=== PATIENT | female | born 1995 | race African-American/Black ===

== ENCOUNTER 2016-10-25 17:52 | Emergency (ER) | payer MEDICAID, OTHER ==
[~2016-10-25] VITALS: Ht 165.1 cm; Wt 156.0 kg
[~2016-10-25 17:52] MED LIST: PREN-129 OR
[2016-10-25] MEDS ORDERED: cefTRIAXone 1GM/50ML D5W 50 ML IV ONE (23:15)
[2016-10-25 23:32] LABS: Basophils # (auto) 0.1 uL; Basophils % (auto) 1.6 % (0.0-2.0); DEFINITIVE VIEW TRANSMISSION; Eosinophils # (auto) 0.2 uL; Eosinophils % (auto) 1.9 % (0.0-7.0); Hematocrit 31.5 % (36.0-46.0); Hemoglobin 10.1 g/dL (12.2-16.2); Lymphocytes # (auto) 1.7 uL; Lymphocytes % (auto) 18.1 % (10.0-50.0); Mean Corpuscular Hemoglobin 24.4 pg (28.0-32.0); Mean Corpuscular Hgb Conc. 32.2 g/dL (32.0-36.0); Mean Corpuscular Volume 75.8 fL (80.0-100.0); Mean Platelet Volume 9.1 fL (7.4-10.4); Monocytes # (auto) 0.7 uL; Neutrophils # (auto) 6.5 uL; Neutrophils % (auto) 70.4 % (37.0-80.0); Platelet Count (auto) 408 10^3/uL (140-450); Red Cell Distribution Width 17.2 % (11.6-16.0); White Blood Cell 9.3 10^3/uL (4.4-10.8)
[2016-10-25 23:49] LABS: Albumin 2.8 g/dL (3.4-5.0); BUN/Creatinine Ratio 10.4; Calcium 8.4 mg/dL (8.5-10.1); Potassium 3.4 mmol/L (3.5-5.1)
[2016-10-25 23:52] LABS: Bilirubin, Total 0.6 mg/dL (0.2-1.0); Total Protein 7.1 g/dL (6.4-8.2)
[2016-10-26] MEDS ORDERED: MORPHINE SULFATE 4 MG/ML SYRG IM ONE (03:15)
[2016-10-26 04:23] VITALS: BP 157/91
== END 2016-10-26 04:25 | disposition home or self-care (01) ==
LOC: ER 18:04
DX: O86.0 Infection of obstetric surgical wound (principal); L03.311 Cellulitis of abdominal wall; O24.93 Unspecified diabetes mellitus in the puerperium; O16.5 Unspecified maternal hypertension, complicating the puerperium; O90.89 Other complications of the puerperium, not elsewhere classified; J45.909 Unspecified asthma, uncomplicated; Z88.6 Allergy status to analgesic agent; Z88.8 Allergy status to other drugs, medicaments and biological substances; Z88.1 Allergy status to other antibiotic agents; Z90.49 Acquired absence of other specified parts of digestive tract
CPT/HCPCS: 36415; 74176; 80053; 83605; 85025; 87040; 87205; 96365; 99285; J0696

== ENCOUNTER 2017-09-21 01:55 | Emergency (ER) | payer SELFPAY ==
[~2017-09-21] VITALS: Ht 165.1 cm; Wt 145.1 kg
[2017-09-21 02:33] LABS: Hemoglobin 11.7 g/dL (12.2-16.2)
[2017-09-21 02:34] LABS: Basophils # (auto) 0.1 uL; Basophils % (auto) 0.5 % (0.0-2.0); Eosinophils # (auto) 0.1 uL; Eosinophils % (auto) 1.3 % (0.0-7.0); Hematocrit 36.6 % (36.0-46.0); Lymphocytes # (auto) 2.1 uL; Lymphocytes % (auto) 18.4 % (10.0-50.0); Mean Corpuscular Hemoglobin 24.2 pg (28.0-32.0); Mean Corpuscular Hgb Conc. 31.9 g/dL (32.0-36.0); Mean Corpuscular Volume 75.9 fL (80.0-100.0); Monocytes # (auto) 0.8 uL; Monocytes % (auto) 7.6 % (0.0-12.0); Neutrophils # (auto) 8.1 uL; Neutrophils % (auto) 72.2 % (37.0-80.0); Platelet Count (auto) 359 10^3/uL (140-450); Red Blood Cells 4.82 10^6/uL (4.0-5.20); Red Cell Distribution Width 16.7 % (11.8-14.3); White Blood Cell 11.2 10^3/uL (4.4-10.8)
[2017-09-21 02:36] LABS: Urine Bacteria NONE SEEN /hpf (None Seen); Urine Blood Negative /uL (Negative); Urine Specific Gravity 1.027 (1.001-1.035); Urine WBC 1 /hpf (0 - 5)
[2017-09-21 02:40] LABS: Amphetamine Screen, Urine NEGATIVE (NEGATIVE); Barbiturate Scree,Urine NEGATIVE (NEGATIVE); Benzodiazephine Screen, Urine NEGATIVE (NEGATIVE); Cannabinoid Screen, Urine POSITIVE (NEGATIVE); Cocaine Screen, Urine POSITIVE (NEGATIVE); Opiate Scree,Urine NEGATIVE (NEGATIVE); Phencyclidine Screen, Urine NEGATIVE (NEGATIVE)
[2017-09-21 02:48] LABS: Alanine Aminotransferase 17 U/L (13-56); Albumin 3.6 g/dL (3.4-5.0); Anion Gap 5 (5-15); Aspartate Aminotransferase 12 U/L (15-37); BUN/Creatinine Ratio 12.9; Blood Urea Nitrogen 11 mg/dL (7-18); Calcium 8.9 mg/dL (8.5-10.1); Carbon Dioxide 24 mmol/L (21-32); Chloride 111 mmol/L (98-107); GFR African American 107 mL/min; GFR Non-African American 88 mL/min; Glucose 94 mg/dL (74-106); Magnesium 2.1 mg/dL (1.6-2.6); Potassium 3.7 mmol/L (3.5-5.1); Sodium 140 mmol/L (136-145)
[2017-09-21 02:53] LABS: Alkaline Phosphatase 96 U/L (45-117); Bilirubin, Total 0.4 mg/dL (0.2-1.0); Total Protein 8.1 g/dL (6.4-8.2)
[2017-09-21 03:14] VITALS: BP 97/44
== END 2017-09-21 03:40 | disposition left against medical advice (07) ==
LOC: ER 02:03
DX: R07.89 Other chest pain (principal); R06.02 Shortness of breath; Z53.21 Procedure and treatment not carried out due to patient leaving prior to being seen by health care provider
CPT/HCPCS: 36415; 71045; 80053; 80307; 81001; 83735; 84484; 85025

== ENCOUNTER 2024-11-07 20:33 | Emergency (ER) | payer MEDICAID ==
[~2024-11-07] VITALS: Ht 167.6 cm; Wt 181.8 kg
--- NOTE | 2024-11-07 20:40 | ECG ---
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
--- NOTE | 2024-11-07 20:48 | ED.PDOC ---
HPI Comments 29 y/o F, with PMhx of gallstones, anxiety, arthritis, asthma, HTN, and DM presents to the ED for CC of chest pain/shortness of breath. Patient relays, that she has been experiencing chest pain with associated shortness of breath and palpitations onset, today (11/07/24). Patient relays, symptoms prompted her to check her a blood pressure; endorses hypertensive reading of 176/133mmHg. Patient endorses, compliance with Losartan. Patient was previously seen at [facility] in September of 2017 for SS, patient was departed with unremarkable findings. Patient comments, that she recently stopped vapping and is unsure if symptoms are d/t recently quitting. No other symptoms or modifying factors present at this time. Time Seen by MD: 20:45 Primary Care Provider: CHERIE Reviewed Notes: Nurses Notes, Medications, Allergies Allergies: Coded Allergies: Acetaminophen (Verified Allergy, Unknown, 04/09/15) Codeine (Verified Allergy, Unknown, 04/09/15) Hydrocodone (Verified Allergy, Unknown, 04/09/15) Sulfa Antibiotics (Verified Adverse Reaction, Severe, 04/09/15) Home Meds Reported Medications Vit W/ Ferrous Fumara () Tab, 1 OR 10/29/12 Information Source: Patient Mode of Arrival: Ambulatory Severity: Moderate Timing: Minutes Duration: Since onset Prehospital treatment: None Onset: With Light Exertion Cardiac Risk Factors: Smoker, HTN, Diabetes PE Risk Factors: None History of: Similar pain in past Modifying Factors: Nothing Associated Signs and Symptoms: SOB Past Medical History PAST MEDICAL HISTORY: Anxiety, Arthritis, Asthma, DM, Gallstones, HTN Surgical History: Cholecystectomy, Family History Family History: Unobtainable Social History Smoker: Quit Less Than 1 Year (VAPES), Other (VAPES) Alcohol: Occasionally Drugs: Denies Drug Use Lives In: Home Constitutional: denies: chills, diaphoresis, fatigue, fever, malaise, sweats, weakness, others EENTM: denies: blurred vision, double vision, ear bleeding, ear discharge, ear drainage, ear pain, ear ringing, eye pain, eye redness, hearing loss, mouth pain, mouth swelling, nasal discharge, nose bleeding, nose congestion, nose pain, photophobia, tearing, throat pain, throat swelling, voice changes, others Respiratory: reports: shortness of breath; denies: cough, hemoptysis, orthopnea, SOB at rest, SOB with excertion, stridor, wheezing, others Cardiovascular: reports: chest pain; denies: dizzy spells, diaphoresis, Dyspnea on exertion, edema, irregular heart beat, left arm pain, lightheadedness, palpitations, PND, syncope, others Gastrointestinal: denies: abdomen distended, abdominal pain, blood streaked bowels, constipated, diarrhea, dysphagia, difficulty swallowing, hematemesis, melena, nausea, poor appetite, poor fluid intake, rectal bleeding, rectal pain, vomiting, others Genitourinary: denies: abnormal vagina bleeding, burning, dyspareunia, dysuria, flank pain, frequency, hematuria, incontinence, pain, , vagina discharge, urgency, others Neurological: denies: dizziness, fainting, headache, left sided numbness, left sided weakness, numbness, paresthesia, pre-existing deficit, right sided numbness, right sided weakness, seizure, speech problems, tingling, tremors, weakness, others Musculoskeletal: denies: back pain, gout, joint pain, joint swelling, muscle pa in, muscle stiffness, neck pain, others Integumetry: denies: bruises, change in color, change in hair/nails, dryness, laceration, lesions, lumps, rash, wounds, others Allergic/Immunocompromised: denies: Difficulty Healing, Frequent Infections, Hives, Itching, others Hematologic/Lymphatic: denies: anemia, blood clots, easy bleeding, easy bruising, swollen glands, others Endocrine: denies: excessive hunger, excessive sweating, excessive thirst, excessive urination, flushing, intolerance to cold, intolerance to heat, unexplained weight gain, unexplained weight loss, others Psychiatric: denies: anxiety, bipolar disorder, depression, hopeless, panic disorder, schizophrenia, sleepless, suicidal, others All Other Systems: Reviewed and Negative Physical Exam General Appearance: No Apparent Distress, Normal HEENT: Normal ENT Inspection, Pharynx Normal, TMs Normal Neck: Full Range of Motion, Non-Tender, Normal, Normal Inspection Respiratory: Chest Non-Tender, Lungs Clear, No Accessory Muscle Use, No Respiratory Distress, Normal Breath Sounds Cardiovascular: No Edema, No Murmur, No Gallop, Normal Peripheral Pulses, Regular Rate/Rhythm Breast Exam: Deferred Gastrointestinal: No Organomegaly, Non Tender, No Pulsatile Mass, Normal Bowel Sounds, Soft Genitalia: Deferred Pelvic: Deferred Rectal: Deferred Extremities: No calf tenderness, Normal capillary refill, Normal inspection, Normal range of motion, Non-tender, No pedal edema Musculoskeletal : Apperance: Normal Neurologic: Alert, 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 Was a procedure done?: No CP Differential Dx Differential Diagnosis: A-fib, A-Flutter, Anxiety / Panic Attack, Atrial Dysrhythmia, AV Block 1st Degree, AV Block 2nd Degree, AV Block 3rd Degree, Electrolyte Disorder, Hyperthyroidism, Hyperventilation, MAT, PAC's, PVC's, Sinus Tachycardia Differential Diagnosis: HTN Essential, HTN Accelerated Differential Diagnosis: Chest Wall Pain, Costochondritis X-Ray, Labs, Meds, VS Vital Signs Date Time Temp Pulse Resp B/P (MAP) Pulse Ox O2 Delivery O2 Flow Rate FiO2 11/07/24 20:39 83 11/07/24 20:33 97.6 92 20 134/101 (112) 97 97.6 Lab Test 11/07/24 21:50 11/07/24 20:50 Range/Units Troponin I High Sensitivity Pending < 3 L </=34 ng/L White Blood Count 9.7 4.4-10.8 10^3/uL Red Blood Count 4.81 4.0-5.20 10^6/uL Hemoglobin 13.2 12.2-16.2 g/dL Hematocrit 39.4 36.0-46.0 % Mean Corpuscular Volume 81.8 80.0-100.0 fL Mean Corpuscular Hemoglobin 27.5 L 28.0-32.0 pg Mean Corpuscular Hemoglobin Concent 33.6 32.0-36.0 g/dL Red Cell Distribution Width 14.4 H 11.8-14.3 % Platelet Count 335 140-450 10^3/uL Mean Platelet Volume 9.1 6.9-10.8 fL Neutrophils (%) (Auto) 62.2 37.0-80.0 % Lymphocytes (%) (Auto) 28.5 10.0-50.0 % Monocytes (%) (Auto) 7.7 0.0-12.0 % Eosinophils (%) (Auto) 1.3 0.0-7.0 % Basophils (%) (Auto) 0.3 0.0-2.0 % Neutrophils # (Auto) 6.1 1.6-8.6 10 ^3/uL Lymphocytes # (Auto) 2.8 0.4-5.4 10 ^3/uL Monocytes # (Auto) 0.8 0-1.3 10 ^3/uL Eosinophils # (Auto) 0.1 0-0.8 10 ^3/uL Basophils # (Auto) 0 0-0.2 10 ^3/uL Nucleated Red Blood Cells 0.0 % Sodium Level 140 136-145 mmol/L Potassium Level 3.7 3.5-5.1 mmol/L Chloride Level 108 H 98-107 mmol/L Carbon Dioxide Level 22 20-31 mmol/L Anion Gap 10 5-15 Blood Urea Nitrogen 11 9-23 mg/dL Creatinine 0.97 0.550-1.02 mg/dL Glomerular Filtration Rate Calc 80 >90 mL/min BUN/Creatinine Ratio 11.3 10.0-20.0 Serum Glucose 94 74-106 mg/dL Calcium Level 9.6 8.7-10.4 mg/dL Time of 1ST Reevaluation: 21:15 Reevaluation 1ST: Unchanged Time of 2ND Reevaluation: 22:12 Reevaluation 2ND: Improved Patient Education/Counseling: Diagnosis, Treatment, Prognosis, Need For Follow Up Family Education/Counseling: No Family Present Additional Information The following tests were ordered, and results were reviewed by me: EKG X3, TROPONIN X3, CBC, BMP, CXR I reviewed and agreed with the following test results read by other providers: CXR I discussed treatment and results with medical personnel and: patient Comprehensive systems review obtained and negative except for what is stated in the HPI. pt has not had any arrhythmias, and her cardiac workup is unremarkable. she is stable for discharge. she is much improved with xanax. she's been evaluated by cardiology with normal workup also and has a follow up revisit coming up Departure 1 Departure Time of Disposition: 22:13 Impression: Primary Impression: Palpitations Disposition: 01 HOME / SELF CARE / HOMELESS Condition: Good Discharged With: Self Critical Care Note Critical Care Time?: Yes (45 min-critical care time only) Critical care comment: due to concerns for patient's condition deteriorating, the care required my highest level of attention and readiness to intervene. i assessed the patient's condition, ordered the proper tests and treatments, reassessed for response and reviewed the results. i communicated with medical personnel and formulated a plan of care. total critical care time does not include any procedures Stability Stability form required: No Heart Score Heart Score: Heart Score Response (Comments) Value History Slightly Suspicious 0 EKG Normal 0 Age <45 0 Risk Factors No known risk factors 0 Troponin Normal limit 0 Total 0 I personally scribed for SANTOSH OWEN MD ([email or web address]) on 11/07/24 at 20:48. El ectronically submitted by Loren Hernández ([email or web address]). I personally scribed for SANTOSH OWEN MD ([email or web address]) on 11/07/24 at 20:54. Electr onically submitted by Loren Hernández ([email or web address]). I personally scribed for SANTOSH OWEN MD ([email or web address]) on 11/07/24 at 20:59. Electronically submitted by Loren Hernández ([email or web address]). SANTOSH OWEN MD November 07, 2024 20:48
[2024-11-07 21:23] LABS: Basophils # (auto) 0 10 ^3/uL (0-0.2); Basophils % (auto) 0.3 % (0.0-2.0); Eosinophils # (auto) 0.1 10 ^3/uL (0-0.8); Eosinophils % (auto) 1.3 % (0.0-7.0); Hematocrit 39.4 % (36.0-46.0); Hemoglobin 13.2 g/dL (12.2-16.2); Lymphocytes # (auto) 2.8 10 ^3/uL (0.4-5.4); Lymphocytes % (auto) 28.5 % (10.0-50.0); Mean Corpuscular Hemoglobin 27.5 pg (28.0-32.0); Mean Corpuscular Hgb Conc. 33.6 g/dL (32.0-36.0); Mean Corpuscular Volume 81.8 fL (80.0-100.0); Monocytes # (auto) 0.8 10 ^3/uL (0-1.3); Monocytes % (auto) 7.7 % (0.0-12.0); Neutrophils # (auto) 6.1 10 ^3/uL (1.6-8.6); Neutrophils % (auto) 62.2 % (37.0-80.0); Platelet Count (auto) 335 10^3/uL (140-450); Red Blood Cells 4.81 10^6/uL (4.0-5.20); Red Cell Distribution Width 14.4 % (11.8-14.3); White Blood Cell 9.7 10^3/uL (4.4-10.8)
[2024-11-07 21:36] LABS: Potassium 3.7 mmol/L (3.5-5.1); Sodium 140 mmol/L (136-145)
[2024-11-07 21:37] LABS: Anion Gap 10 (5-15); Carbon Dioxide 22 mmol/L (20-31); Chloride 108 mmol/L (98-107)
[2024-11-07 21:38] LABS: Calcium 9.6 mg/dL (8.7-10.4)
[2024-11-07 21:42] LABS: BUN/Creatinine Ratio 11.3 (10.0-20.0); Blood Urea Nitrogen 11 mg/dL (9-23); Glucose 94 mg/dL (74-106)
--- NOTE | 2024-11-07 21:47 | DVH ---
CHEST RADIOGRAPH Indication: palpitations Technique: Single frontal view of the chest was obtained COMPARISON: None FINDINGS: Lines and Tubes: None Lungs: Clear Pleura: No effusion. No pneumothorax. Cardiomediastinal contours: Unremarkable IMPRESSION: No abnormality.
[2024-11-07] MEDS ORDERED: CLON0.1T PO (22:18)
[2024-11-07 22:26] VITALS: BP 120/61; TEMP 98.3
[2024-11-07] MEDS: cloNIDine HCL 0.1 MG TAB PO ONE (22:30)
[2024-11-07] MEDS: ALPRAZolam 0.25 MG TAB PO ONE (22:32)
[2024-11-07 22:34] VITALS: PULSE 90; RESP 22; O2SAT 98
== END 2024-11-07 22:41 | disposition home or self-care (01) ==
LOC: ER 20:37
DX: R00.2 Palpitations (principal); R07.9 Chest pain, unspecified; R06.02 Shortness of breath; F41.9 Anxiety disorder, unspecified; E11.9 Type 2 diabetes mellitus without complications; I10 Essential (primary) hypertension; J45.909 Unspecified asthma, uncomplicated; M19.90 Unspecified osteoarthritis, unspecified site; Z90.49 Acquired absence of other specified parts of digestive tract; Z88.5 Allergy status to narcotic agent; Z88.2 Allergy status to sulfonamides; Z88.6 Allergy status to analgesic agent
CPT/HCPCS: 36415; 71045; 80048; 84484; 85025; 93005

== ENCOUNTER 2025-04-25 11:17 | Emergency (ER) | payer MEDICAID ==
[~2025-04-25] VITALS: Ht 167.6 cm; Wt 170.2 kg
[~2025-04-25 11:17] MED LIST changes: +CLON0.1T PO
[2025-04-25 12:11] LABS: Urine Protein, UAD TRACE (Negative)
--- NOTE | 2025-04-25 12:32 | ED.PDOC ---
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 Patient states she is currently [id number] and x6days , and has been experiencing LLQ abdominal pain x1week. Patient reports, pain to be "stabbing" in nature. Patient denies active bleeding, trauma, injury, fall, vaginal discharge, or recent sexual intercourse. No other symptoms or modifying factors are present at this time. Initial Vitals BP: HR: RR: O2 Sat: Temp: Past Medical history: HTN, DM, GALLSTONES, ANXIETY, ASTHMA Past Surgical history: C-SECTIONS, CHOLECYSTECTOMY Medications: DENIES ANY Social History: Denies smoking, ETOH, and drug use. Allergies: NKDA FIDIS: HPI: Poor Historian. REVIEW OF SYSTEMS: CONSTITUTIONAL: Denies acute: fever, diaphoresis, chills, generalized weakness. HEAD: Denies acute: headache, photophobia Eyes: Denies acute: Double vision, vision loss, eye pain, eye discharge. EARS: Denies acute: tinnitus, hearing loss, ear discharge, ear pain, THROAT: Denies acute: sore throat, swelling, difficulty swallowing , pain with swallowing, change in voice. NECK: Denies acute: neck pain, neck swelling, stiff neck. HEART: Denies acute : chest pain, palpitations, LUNGS: Denies acute: SOB, wheezing, cough, hemoptysis ABDOMEN: Denies acute: Nausea, Vomiting, diarrhea, melena , hematemesis, hematochezia SKIN: Denies acute: rash, redness, lesions, itchiness. EXTREMITIES: Denies acute: calf pain, numbness, tingling, weakness, denies pain in extremity. Denies acute: Low back pain. Neuro: Denies acute: focal neurological deficit, motor or sensory focal neurological deficit, tremors, seizure like activity, confusion, dizziness, change in mental status, loss of bowel or bladder function, cauda equina like symptoms. : Denies acute: dysuria, hematuria, flank pain, increase in urinary frequency. PSYCH: Denies acute: hallucination, suicidal ideation, homicidal ideation. FEMALE: Denies acute: abnormal vaginal bleeding, foul odor, unusual discharge. PHYSICAL EXAM: General: ---no-----acute distress, awake and alert. Head: normocephalic, atraumatic. No raccoon's eyes, no choi sign. Neck: supple, trachea is midline, no swelling. Throat: Normal phonation. Eyes:, no erythema, no purulent discharge, no proptosis, no icterus. Heart: regular rate, regular rhythm, no significant murmur appreciated. Lungs: no apparent respiratory distress, Able to speak in full sentences. No wheezing, no rhonchi, no crackles. No stridors Clear to auscultation bilaterally. Abdomen: Focal left lower quadrant tender to palpation, non distended, soft, no guarding, no rebound, + bowel sounds. Morbidly obese Neuro: Awake, Alert, oriented to name, self, situation, follows commands GCS=15. Speech is normal. Skin: no petechia, no purpura, no cyanosis, non-pale, not jaundice. Lower extremities: --no - Pitting edema no deformity, no focal swelling, no calf TTP. Makes eye contact. moves all four extremities. Face: no apparent facial droop. Ambulating in the ED independently. ED COURSE: DISCLAIMER: This medical document was created using an electronic medical record system with voice recognition software and computerized dictation system. Although this document has been carefully reviewed, there might still be some phonetic and typographical errors. Occasional wrong-word or "sound-alike" substitutions may have occurred due to the inherent limitations of voice recognition software. The se areas are purely typographical due to imperfections of the software programs and do not reflect any compromise in the patient's medical care. Please read the chart carefully and recognize, using context, where these substitutions have occurred. Boyd: HPI: Poor Historian. Here for positive test and missing her menstrual cycle and feeling some movement in her belly. Denies any vaginal bleeding or abdominal pain or cramps. REVIEW OF SYSTEMS: CONSTITUTIONAL: Denies acute: fever, diaphoresis, chills, generalized weakness. HEAD: Denies acute: headache, photophobia Eyes: Denies acute: Double vision, vision loss, eye pain, eye discharge. EARS: Denies acute: tinnitus, hearing loss, ear discharge, ear pain, THROAT: Denies acute: sore throat, swelling, difficulty swallowing , pain with swallowing, change in voice. NECK: Denies acute: neck pain, neck swelling, stiff neck. HEART: Denies acute : chest pain, palpitations, LUNGS: Denies acute: SOB, wheezing, cough, hemoptysis ABDOMEN: Denies acute: abdominal pain, Nausea, Vomiting, diarrhea, melena , hematemesis, hematochezia SKIN: Denies acute: rash, redness, lesions, itchiness. EXTREMITIES: Denies acute: calf pain, numbness, tingling, weakness, denies pain in extremity. Denies acute: Low back pain. Neuro: Denies acute: focal neurological deficit, motor or sensory focal neurological deficit, tremors, seizure like activity, confusion, dizziness, change in mental status, loss of bowel or bladder function, cauda equina like symptoms. : Denies acute: dysuria, hematuria, flank pain, increase in urinary frequency. PSYCH: Denies acute: hallucination, suicidal ideation, homicidal ideation. FEMALE: Denies acute: abnormal vaginal bleeding, foul odor, unusual discharge. PHYSICAL EXAM: General: ---no-----acute distress, awake and alert. Head: normocephalic, atraumatic. No raccoon's eyes, no choi sign. Neck: supple, trachea is midline, no swelling. Throat: Normal phonation. Eyes:, no erythema, no purulent discharge, no proptosis, no icterus. Heart: regular rate, regular rhythm, no significant murmur appreciated. Lungs: no apparent respiratory distress, Able to speak in full sentences. No wheezing, no rhonchi, no crackles. No stridors Clear to auscultation bilaterally. Abdomen: non tender to palpation, non distended, soft, no guarding, no rebound, + bowel sounds. Neuro: Awake, Alert, oriented to name, self, situation, follows commands GCS=15. Speech is normal. Skin: no petechia, no purpura, no cyanosis, non-pale, not jaundice. Lower extremities: --no - Pitting edema no deformity, no focal swelling, no calf TTP. Makes eye contact. moves all four extremities. Face: no apparent facial droop. Ambulating in the ED independently. ED COURSE: DISCLAIMER: This medical document was created using an electronic medical record system with voice recognition software and computerized dictation system. Although this document has been carefully reviewed, there might still be some phonetic and typographical errors. Occasional wrong-word or "sound-alike" substitutions may have occurred due to the inherent limitations of voice recognition software. These areas are purely typographical due to imperfections of the software programs and do not reflect any compromise in the patient's medical care. Please read the chart carefully and recognize, using context, where these substitutions have occurred. Chief Complaint: Pelvic Pain Time Seen by MD: 12:05 Reviewed Notes: Nurses Notes, Medications, Allergies Allergies: Coded Allergies: Acetaminophen (Verified Allergy, Unknown, 04/09/15) Codeine (Verified Allergy, Unknown, 04/09/15) Hydrocodone (Verified Allergy, Unknown, 04/09/15) Sulfa Antibiotics (Verified Adverse Reaction, Severe, 04/09/15) Home Meds Active Scripts Cephalexin Monohydrate (Cephalexin) 500 Mg Cap, 500 MG PO Q8HR for 5 Days, #15 CAP Prov:SHYLA MCCLELLAND DO 04/25/25 Clonidine Hydrochloride (Clonidine Hcl) 0.1 Mg Tab, 1 TAB PO DAILY PRN for 5 Days, #5 TAB 2 Refills take one table daily as needed, if your systolic blood pressure is over 190 or bottom number is over 110. if not responding to this medication, see a physician immediately Prov:SANTOSH OWEN MD 11/07/24 Reported Medications Vit W/ Ferrous Fumara () Tab, 1 OR 10/29/12 Information Source: Patient Mode of Arrival: Ambulatory Timing: Weeks Prehospital treatment: None Severity: Moderate Vaginal Discharge: None Vaginal Lesions: None Vaginal Mass: None Sexual Activity: Last Consensual [place]: Unknown Control: None History of: Current Blood Type: Unknown Symptoms of Possible : None Associated Signs and Symptoms: None Was a procedure done? 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 X-Ray, Labs, Meds, VS Vital Signs Date Time Temp Pulse Resp B/P (MAP) Pulse Ox O2 Delivery O2 Flow Rate FiO2 04/25/25 13:55 97.6 75 16 119/78 (92) 100 97.6 04/25/25 11:40 Room Air* 0 21 04/25/25 11:36 97.5 79 18 121/74 (90) 100 97.5 04/25/25 11:19 98.7 70 16 100/73 98 98.7 Lab Test 04/25/25 12:02 04/25/25 11:58 Range/Units White Blood Count 7.9 4.4-10.8 10^3/uL Red Blood Count 4.33 4.0-5.20 10^6/uL Hemoglobin 11.4 L 12.2-16.2 g/dL Hematocrit 35.3 L 36.0-46.0 % Mean Corpuscular Volume 81.5 80.0-100.0 fL Mean Corpuscular Hemoglobin 26.4 L 28.0-32.0 pg Mean Corpuscular Hemoglobin Concent 32.4 32.0-36.0 g/dL Red Cell Distribution Width 13.3 11.8-14.3 % Platelet Count 291 140-450 10^3/uL Mean Platelet Volume 9.1 6.9-10.8 fL Neutrophils (%) (Auto) 70.7 37.0-80.0 % Lymphocytes (%) (Auto) 19.9 10.0-50.0 % Monocytes (%) (Auto) 6.4 0.0-12.0 % Eosinophils (%) (Auto) 2.7 0.0-7.0 % Basophils (%) (Auto) 0.3 0.0-2.0 % Neutrophils # (Auto) 5.6 1.6-8.6 10 ^3/uL Lymphocytes # (Auto) 1.6 0.4-5.4 10 ^3/uL Monocytes # (Auto) 0.5 0-1.3 10 ^3/uL Eosinophils # (Auto) 0.2 0-0.8 10 ^3/uL Basophils # (Auto) 0 0-0.2 10 ^3/uL Nucleated Red Blood Cells 0.0 % Sodium Level 139 136-145 mmol/L Potassium Level 3.3 L 3.5-5.1 mmol/L Chloride Level 105 98-107 mmol/L Carbon Dioxide Level 23 20-31 mmol/L Anion Gap 11 5-15 Blood Urea Nitrogen 7 L 9-23 mg/dL Creatinine 0.69 0.550-1.02 mg/dL Glomerular Filtration Rate Calc 119 >90 mL/min BUN/Creatinine Ratio 10.1 10.0-20.0 Serum Glucose 92 74-106 mg/dL Calcium Level 9.2 8.7-10.4 mg/dL Total Bilirubin 0.7 0.2-1.0 mg/dL Aspartate Amino Transferase (AST) 16 13-40 U/L Alanine Aminotransferase (ALT) 11 7-40 U/L Alkaline Phosphatase 88 46-116 U/L Total Protein 7.9 5.7-8.2 g/dL Albumin 4.3 3.2-4.8 g/dL Beta HCG, Quantitative 58209.5 H 1.5-4.2 mIU/mL Urine Color Yellow Yellow Urine Clarity Turbid H Clear Urine pH 5.5 5.0-9.0 Urine Specific [place] 1.027 1.001-1.035 Urine Protein Trace H Negative Urine Ketones 1+ H Negative Urine Blood Negative Negative /uL Urine Nitrite Negative Negative Urine Bilirubin Negative Negative Urine Urobilinogen Normal Negative mg/dL Urine Leukocyte Esterase Negative Negative /uL Urine RBC 2 0 - 4 /hpf Urine Microscopic WBC 1 0-5 /HPF Urine Squamous Epithelial Cells Many <5 /hpf Urine Bacteria Many H None Seen /hpf Urine Mucus Few None Seen Urine Glucose Normal Normal mg/dL [address] [address] Ph: [phone] DIAGNOSTIC IMAGING Diagnostic Imaging Report : [id number] Signed 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 COMPARISON: None FINDINGS: The uterus measures 12.3 x 7.9 x 6.9 cm. The endometrial stripe contains an IUP. The right ovary not visualized. The left ovary measures 2.6 x 1.7 x 1.8 cm. Volume of the left ovary is 4.9 ML Subsequent color and duplex Doppler interrogation of the ovaries demonstrated symmetric vascular flow to both ovaries, though this does not exclude the possibility of torsion due to the dual blood supply. Gestational sac 5.04 cm consistent with 10 weeks 5 days pole measures 4.85 cm consistent with 11 weeks 5 days. heart rate 172 beats per minute. IMPRESSION: 1. 11 week 2 day intrauterine estimated date of delivery 11/12/2025 2. heart rate 172 beats per minute ATED BY: ADITYA YEE Jr., DO DICTATED DATE/TIME: 04/25/251243 SIGNED BY: ADITYA YEE Jr., SIGNED DATE/TIME: 04/25/251243 CC: Time of 1ST Reevaluation: 12:35 Reevaluation 1ST: Unchanged Patient Education/Counseling: Diagnosis, Treatment Family Education/Counseling: No Family Present Comments MDM: patient presented with the above HPI.-abdominal pain in -----workup was initiated. patient was found with the above mentioned diagnosis. the following medications were ordered: please refer to order lists of meds and tests obtained by myself Dr. Mcclelland. Patient ED course and VS have been stabilized. Patient has been reassessed in the ED and remained in a stable condition. Pertinent incidental findings were discussed with the patient and/or family. Patient/family voices understanding and is agreeable with plan. Patient has been observed in the ED adequate length of time to insure improvement/stability. Escalation of care considered: Consideration of escalation to observation or admission Patient was DISCHARGED home in a stable condition. All the reports of any imaging studies that were ordered by myself were reviewed by myself. Departure 1 Departure Time of Disposition: 13:47 Impression: Primary Impression: Abdominal pain during Additional Impression: UTI in Disposition: 01 HOME / SELF CARE / HOMELESS Condition: Stable Additional Instructions: Additional instructions: Please read all instructions provided in this packet carefully. You MUST follow-up with your primary care/family doctor in 1 to 2 days. If you are unable to see your primary care/family doctor, please return to our emergency room for re-assessment and re-evaluation in 1 to 2 days. Return to the emergency room here in our facility or to the nearest ER [facility] if your symptoms change or worsen. CONSULTATIONS: you MUST Follow-up for consultation as soon as possible with: --OB Gyne doctor in 1-2 days. Please call for appointment. You MUST call the consultants office yourself to make an appointment. You may need to arrange that through your insurance and/or your primary/family doctor. If you are unable to see the personnel consultant in 1 to 2 days, you must return to our emergency room (or any other ER of your choice) for re-assessment and re- evaluation. Adequate fluid hydration. Although you have been discharged from the Emergency Department, this does not mean that you have a "clean bill of health". No definitive diagnosis for your symptoms has been made today. It is possible that you are in the process of developing a serious illness. This is why you must return to the ED without fail if any new or worsening symptoms develop. No heavy lifting. Repeat pelvic ultrasound in 4-5 days. Repeat beta-hCG levels in 48-72 hours. [place] [address].5 Below is a copy of your radiological report for follow up: [address] [address] Ph: [phone] DIAGNOSTIC IMAGING Diagnostic Imaging Report : [id number] Signed PATIENT: CALDERON TOBIN ACCT: [id number] UNIT: [id number] : 1995 LOC: ER ROOM / BED: / AGE / SEX: 29 / F ADM STATUS: REG ER SERVICE 1154 ORDERING PHYSICIAN: SHYLA MCCLELLAND DO PROCEDURE(s): OB4US - OB ULTRASOUND COMP LESS 14WKS REASON: pelvic pain ORDER NUMBER(s): [id number], ACCESSION NUMBER(s): [id number] INDICATION: pelvic pain TECHNIQUE: Multiple real-time grayscale transabdominal sonographic images along with color and duplex Doppler of the uterus and ovaries were obtained. COMPARISON: None FINDINGS: The uterus measures 12.3 x 7.9 x 6.9 cm. The endometrial stripe contains an IUP. The right ovary not visualized. The left ovary measures 2.6 x 1.7 x 1.8 cm. Volume of the left ovary is 4.9 ML Subsequent color and duplex Doppler interrogation of the ovaries demonstrated symmetric vascular flow to both ovaries, though this does not exclude the possibility of torsion due to the dual blood supply. Gestational sac 5.04 cm consistent with 10 weeks 5 days pole measures 4.85 cm consistent with 11 weeks 5 days. heart rate 172 beats per minute. IMPRESSION: 1. 11 week 2 day intrauterine estimated date of delivery 11/12/2025 2. heart rate 172 beats per minute ATED BY: ADITYA YEE Jr., DO DICTATED DATE/TIME: 04/25/25 124 SIGNED BY: ADITYA YEE Jr., SIGNED DATE/TIME: 04/25/25 124 CC: e-Prescriptions Cephalexin Monohydrate (Cephalexin) 500 Mg Cap 500 MG PO Q8HR for 5 Days, #15 CAP Prov: SHYLA MCCLELLAND DO 04/25/25 Discharged With: Self Critical Care Note Critical Care Time?: No I personally scribed for SHYLA MCCLELLAND DO ([email or web address]) on 04/25/25 at 12:32. Electronically submitted by Loren Hernández ([email or web address]). I personally scribed for SHYLA MCCLELLAND DO ([email or web address]) on 04/25/25 at 12:56. Electronically submitted by Loren Hernández ([email or web address]). SHYLA MCCLELLAND DO Apr 25, 2025 12:32
[2025-04-25 12:44] LABS: Hematocrit 35.3 % (36.0-46.0); Hemoglobin 11.4 g/dL (12.2-16.2); Mean Corpuscular Hemoglobin 26.4 pg (28.0-32.0); Mean Corpuscular Volume 81.5 fL (80.0-100.0); Nucleated Red Blood Cells % 0.0 %
--- NOTE | 2025-04-25 12:46 | DVH ---
INDICATION: pelvic pain TECHNIQUE: Multiple real-time grayscale transabdominal sonographic images along with color and duplex Doppler of the uterus and ovaries were obtained. COMPARISON: None FINDINGS: The uterus measures 12.3 x 7.9 x 6.9 cm. The endometrial stripe contains an IUP. The right ovary not visualized. The left ovary measures 2.6 x 1.7 x 1.8 cm. Volume of the left ovary is 4.9 ML Subsequent color and duplex Doppler interrogation of the ovaries demonstrated symmetric vascular flow to both ovaries, though this does not exclude the possibility of torsion due to the dual blood supply. Gestational sac 5.04 cm consistent with 10 weeks 5 days pole measures 4.85 cm consistent with 11 weeks 5 days. heart rate 172 beats per minute. IMPRESSION: 1. 11 week 2 day intrauterine estimated date of delivery 11/12/2025 2. heart rate 172 beats per minute
[2025-04-25 12:54] LABS: Alanine Aminotransferase 11 U/L (7-40); Albumin 4.3 g/dL (3.2-4.8); Alkaline Phosphatase 88 U/L (46-116); Anion Gap 11 (5-15); BUN/Creatinine Ratio 10.1 (10.0-20.0); Bilirubin, Total 0.7 mg/dL (0.2-1.0); Calcium 9.2 mg/dL (8.7-10.4); Carbon Dioxide 23 mmol/L (20-31); Chloride 105 mmol/L (98-107); Glucose 92 mg/dL (74-106); Sodium 139 mmol/L (136-145); Total Protein 7.9 g/dL (5.7-8.2)
[2025-04-25 12:56] LABS: Blood Urea Nitrogen 7 mg/dL (9-23); Potassium 3.3 mmol/L (3.5-5.1)
[2025-04-25] MEDS ORDERED: CEPH500C PO (13:49)
[2025-04-25 13:55] VITALS: BP 119/78; PULSE 75; RESP 16; TEMP 97.6; O2SAT 100
== END 2025-04-25 14:31 | disposition home or self-care (01) ==
LOC: ER 11:17
DX: O26.891 Other specified pregnancy related conditions, first trimester (principal); O23.41 Unspecified infection of urinary tract in pregnancy, first trimester; J45.909 Unspecified asthma, uncomplicated; Z3A.11 11 weeks gestation of pregnancy; Z88.2 Allergy status to sulfonamides; Z88.5 Allergy status to narcotic agent; Z90.49 Acquired absence of other specified parts of digestive tract
CPT/HCPCS: 36415; 76801; 80053; 81001; 84702; 85025